=== PATIENT | male | born 1995 | race Caucasian/White ===

== ENCOUNTER 2016-11-25 11:59 | Emergency (ER) | payer OTHER ==
[~2016-11-25] VITALS: Ht 188 cm; Wt 77.3 kg
[2016-11-25 12:04] VITALS: BP 139/80; PULSE 86; TEMP 98.2
== END 2016-11-25 13:03 | disposition left against medical advice (07) ==
LOC: COL.ER 11:59
DX: R10.9 Unspecified abdominal pain (principal); R11.0 Nausea

== ENCOUNTER 2017-08-25 18:36 | Emergency (ER) | payer OTHER ==
[~2017-08-25] VITALS: Ht 190.5 cm; Wt 81.8 kg
[2017-08-25 18:45] VITALS: TEMP 98.3
[2017-08-25] MEDS ORDERED: MULTI VITAMINS1 TAB PO (19:00)
[2017-08-25] MEDS ORDERED: ZYRTEC 10MG10 MG PO (19:01)
[2017-08-25 19:36] VITALS: BP 132/64; PULSE 96
== END 2017-08-25 19:36 | disposition home or self-care (01) ==
LOC: COL.ER 18:36
DX: S93.402A Sprain of unspecified ligament of left ankle, initial encounter (principal); X50.0XXA Overexertion from strenuous movement or load, initial encounter; Y93.67 Activity, basketball